=== PATIENT | male | born 1960 | race Caucasian/White ===

== ENCOUNTER 2016-08-14 10:30 | Inpatient (IN) | payer OTHER ==
[~2016-08-14] VITALS: Ht 170.2 cm; Wt 79.8 kg
[~2016-08-14 10:30] MED LIST: FOLI1 PO; PROT40TA PO; THIA100T PO; Z.0.NO CURRENT MEDS
[2016-08-14 10:34] VITALS: BP 163/74; PULSE 61; RESP 16; TEMP 98.4; O2SAT 98
--- NOTE | 2016-08-14 10:43 | PD ---
Physical Exam Time Seen by Provider: 10:41 Narrative 55yo M sent by [facility] for evaluation of black stool since yesterday. Denies abd pain. Reports feeling dizzy and tired. Reports nausea w/o vomiting. Denies fever. Patient seen in triage. VS reviewed. Awaiting bed placement. Data Data Last Documented VS Vital Signs Date Time Temp Pulse Resp B/P Pulse Ox O2 Delivery O2 Flow Rate FiO2 08/14/16 10:34 98.4 61 16 163/74 98 Room Air [facility] Supervised Visit with VAL: Yary Diaz Aug 14, 2016 10:43
[2016-08-14 11:29] LABS: AUTOMATED NEUTROPHIL # 2.7 TH/MM3 (1.8-7.7); BASOPHIL % 0.2 % (0.0-2.0); EOSINOPHIL # 0.1 TH/MM3 (0-0.4); EOSINOPHIL % 2.2 % (0.0-4.0); HEMATOCRIT 37.5 % (39.0-51.0); HEMO FLAGS DIFF FINAL; LYMPH % 23.6 % (9.0-44.0); MEAN CORPUSCULAR HEMOGLOBIN 28.7 PG (27.0-34.0); MEAN CORPUSCULAR HGB CONC 34.2 % (32.0-36.0); MONO % 6.9 % (0.0-8.0); NEUT % 67.1 % (16.0-70.0); PLATELET COUNT 142 TH/MM3 (150-450); RED BLOOD COUNT 4.47 MIL/MM3 (4.50-5.90); RED CELL DISTRIBUTION WIDTH 14.7 % (11.6-17.2); WHITE BLOOD COUNT 4.1 TH/MM3 (4.0-11.0)
[2016-08-14 11:48] LABS: PROTHROMBIN TIME - PATIENT 11.5 SEC (9.8-11.6)
[2016-08-14 12:01] LABS: BLOOD, URINE NEG (NEG); COMMENT (UR) CULT NOT INDICATED; CULTURE IF INDICATED CULT NOT INDICATED; GLUCOSE,URINE NEG (NEG); KETONE, URINE TRACE mg/dL (NEG); MUCUS URINE FEW /lpf (OCC); NITRITE,URINE NEG (NEG); URINE COLOR YELLOW (YELLW/STRAW)
--- NOTE | 2016-08-14 12:39 | PD ---
HPI Chief Complaint: GI Complaint Time Seen by Provider: 12:32 Travel History International Travel<30 days: No Contact w/Intl Traveler<30days: No Traveled to known affect area: No History of Present Illness HPI 55-year-old male came to the emergency room sent by his primary care with history of dark tarry stools since this morning. He had a rectal done at his care's office and the concern was for GI bleed and patient was sent to the emergency room. Patient does not have any history of lightheadedness or dizziness. No history of syncopal episode. No history of abdominal pain. Patient has history of cirrhosis secondary to alcoholism in the past and had variceal banding done 4 years ago. Patient does not speak much Slovenian and information was obtained from medical records. No history of vomiting or nausea. No signs otherwise stable. Blood test was done prior to me going to see the patient and hemoglobin was stable. Patient is stable hemodynamically as well. Patient denies drinking alcohol currently. PFSH Past Medical History Narrative Medical List of his past medical, surgical, social and family history was reviewed from the nursing note. Arthritis: Yes Asthma: No Autoimmune Disease: No Heart Rhythm Problems: No Cancer: No Cardiovascular Problems: No High Cholesterol: No Chemotherapy: No Chest Pain: No Congestive Heart Failure: No COPD: No Diabetes: No Diminished Hearing: No Endocrine: No GERD: No Genitourinary: No Hiatal Hernia: No Heparin Induced Thrombocytopen: No Hypertension: Yes Immune Disorder: No Implanted Vascular Access Dvce: No Kidney Stones: No Musculoskeletal: Yes Neurologic: No Psychiatric: No Reproductive: No Respiratory: No Radiation Therapy: No Renal Failure: No Sickle Cell Disease: No Sleep Apnea: No Thyroid Disease: No Ulcer: No Past Surgical History Abdominal Surgery: No AICD: No Arteriovenous Shunt: No Cardiac Surgery: No Ear Surgery: No Endocrine Surgery: No Eye Surgery: No Genitourinary Surgery: No Gynecologic Surgery: No Insulin Pump: No Joint Replacement: No Neurologic Surgery: No Oral Surgery: No Pacemaker: No Thoracic Surgery: No Other Surgery: Yes (BACK SURGERY) Social History Alcohol Use: Yes (SOCIAL) Tobacco Use: No Substance Use: No Allergies-Medications (Allergen,Severity, Reaction): Coded Allergies: No Known Allergies (Unverified , 10/24/12) Comments No known drug allergies. Reported Meds & Prescriptions Reported Meds & Active Scripts Active Narrative Medication List of his home medications reviewed from the nursing note. Review of Systems Except as stated in HPI: all other systems reviewed are Neg Physical Exam Narrative GENERAL: Awake, alert, anxious, no obvious distress SKIN: Focused skin assessment warm/dry. HEAD: Atraumatic. Normocephalic. EYES: Pupils equal and round. No scleral icterus. No injection or drainage. ENT: No nasal bleeding or discharge. Mucous membranes pink and moist. NECK: Trachea midline. No JVD. CARDIOVASCULAR: Regular rate and rhythm. No murmur appreciated. RESPIRATORY: No accessory muscle use. Clear to auscultation. Breath sounds equal bilaterally. GASTROINTESTINAL: Abdomen soft, non-tender, nondistended. Hepatic and splenic margins not palpable. MUSCULOSKELETAL: No obvious deformities. No clubbing. No cyanosis. No edema. NEUROLOGICAL: Awake and alert. No obvious cranial nerve deficits. Motor grossly within normal limits. Normal speech. PSYCHIATRIC: Appropriate mood and affect; insight and judgment normal. Data Data Last Documented VS Vital Signs Date Time Temp Pulse Resp B/P Pulse Ox O2 Delivery O2 Flow Rate FiO2 08/14/16 12:17 18 08/14/16 10:34 98.4 61 163/74 98 Room Air Orders Complete Blood Count With Diff (08/14/16 11:02) Comprehensive Metabolic Panel (08/14/16 11:02) Urinalysis - C+S If Indicated (08/14/16 11:02) Lipase (08/14/16 11:02) Prothrombin Time / Inr (Pt) (08/14/16 11:02) Sodium Chlor 0.9% 1000 Ml Inj (Ns 1000 M (08/14/16 13:30) Type And Screen (08/14/16 13:26) Admit Order (Ed Use Only) (08/14/16 13:34) Labs Laboratory Tests Test 08/14/16 08/14/16 11:15 13:30 White Blood Count 4.1 TH/MM3 Red Blood Count 4.47 MIL/MM3 Hemoglobin 12.8 GM/DL Hematocrit 37.5 % Mean Corpuscular Volume 84.0 FL Mean Corpuscular Hemoglobin 28.7 PG Mean Corpuscular Hemoglobin 34.2 % Concent Red Cell Distribution Width 14.7 % Platelet Count 142 TH/MM3 Mean Platelet Volume 7.8 FL Neutrophils (%) (Auto) 67.1 % Lymphocytes (%) (Auto) 23.6 % Monocytes (%) (Auto) 6.9 % Eosinophils (%) (Auto) 2.2 % Basophils (%) (Auto) 0.2 % Neutrophils # (Auto) 2.7 TH/MM3 Lymphocytes # (Auto) 1.0 TH/MM3 Monocytes # (Auto) 0.3 TH/MM3 Eosinophils # (Auto) 0.1 TH/MM3 Basophils # (Auto) 0.0 TH/MM3 CBC Comment DIFF FINAL Differential Comment Prothrombin Time 11.5 SEC Prothromb Time International 1.0 RATIO Ratio Urine Color YELLOW Urine Turbidity CLEAR Urine pH 6.0 Urine Specific [place] 1.020 Urine Protein NEG mg/dL Urine Glucose (UA) NEG mg/dL Urine Ketones TRACE mg/dL Urine Occult Blood NEG Urine Nitrite NEG Urine Bilirubin NEG Urine Urobilinogen LESS THAN 2.0 MG/DL Urine Leukocyte Esterase NEG Urine RBC LESS THAN 1 /hpf Urine WBC LESS THAN 1 /hpf Urine Mucus FEW /lpf Microscopic Urinalysis Comment CULT NOT INDICATED Sodium Level 141 MEQ/L Potassium Level 3.7 MEQ/L Chloride Level 105 MEQ/L Carbon Dioxide Level 26.1 MEQ/L Anion Gap 10 MEQ/L Blood Urea Nitrogen 14 MG/DL Creatinine 0.61 MG/DL Estimat Glomerular Filtration 138 ML/MIN Rate Random Glucose 103 MG/DL Calcium Level 9.1 MG/DL Total Bilirubin 0.9 MG/DL Aspartate Amino Transf 17 U/L (AST/SGOT) Alanine Aminotransferase 29 U/L (ALT/SGPT) Alkaline Phosphatase 69 U/L Total Protein 7.8 GM/DL Albumin 3.8 GM/DL Lipase 161 U/L Blood Type A POSITIVE Antibody Screen NEGATIVE MDM Medical Decision Making Medical Screen Exam Complete: Yes Emergency Medical Condition: Yes Medical Record Reviewed: Yes Differential Diagnosis Upper GI bleed, lower GI bleed Narrative Course 1:48 PM based on our Hemoccult result I spoke with the hospitalist. He has accepted the case. Meanwhile patient's primary care doctor, Dr. Bates called as well to let me know about his concern for GI bleed. He preferred that the patient was admitted and got a GI workup. This has been conveyed to the patient and his own language and he understands. Protonix bolus and drip was started. Critical Care Narrative Aggregate critical care time was 30 minutes. Time to perform other separately billable procedures was not included in the critical care time. My time did not include minutes spent treating any other patients simultaneously or on activities that did not directly contribute to the patient's treatment. The services I provided to this patient were to treat and/or prevent clinically significant deterioration that could result in: GI bleed, Protonix bolus and drip I provided critical care services requiring my management, as noted below: Chart data review, documentation time, medication orders and management, vital sign assessments/reviewing monitor data, ordering and reviewing lab tests, ordering and interpreting/reviewing x-rays and diagnostic studies, care of the patient and discussion of the patient with the admitting physicians. Procedures EKG Prior to Arrival: No HemaPrompt Point of Care Internal Pos. & Neg. Controls: Passed Fecal Specimen Occult Blood: Positive Physician Communication Physician Communication Dr. Matias Diagnosis Primary Impression: GI bleed Qualified Code: K92.2 - Gastrointestinal hemorrhage, unspecified gastrointestinal hemorrhage type Admitting Information Admitting Physician Requests: Admit Scripts Propranolol 10 Mg Tab10 Mg PO Q12HR #62 TAB hold for dizziness or low blood pressure Prov:Samantha Pryor 08/15/16 Pantoprazole 40 Mg Tab40 Mg PO DAILY #31 TAB Prov:Samantha Pryor 08/15/16 Pattie Bailey MD Aug 14, 2016 12:38
[2016-08-14 12:56] LABS: ANION GAP 10 MEQ/L (5-15); AST (GOT) 17 U/L (15-37); BICARBONATE 26.1 MEQ/L (21.0-32.0); BLOOD UREA NITROGEN 14 MG/DL (7-18); CHLORIDE 105 MEQ/L (98-107); GLOMERULAR FILTRATION RATE 138 ML/MIN (>89); POTASSIUM 3.7 MEQ/L (3.5-5.1); SODIUM (NA) 141 MEQ/L (136-145)
[2016-08-14 12:57] LABS: ALT (GPT) 29 U/L (12-78)
[2016-08-14 12:59] LABS: ALKALINE PHOSPHATASE 69 U/L (45-117); TOTAL BILIRUBIN ADULT 0.9 MG/DL (0.2-1.0)
[2016-08-14] MEDS ORDERED: SODIUM CHLOR 0.9% 1000 ML INJ 1,000 ML IV ONE (13:30)
[2016-08-14 13:49] VITALS: BP 166/87; PULSE 70; RESP 19; O2SAT 97
[2016-08-14] MEDS ORDERED: ACETAMINOPHEN 325 MG TAB PO PRN (14:00)
[2016-08-14] MEDS ORDERED: ONDANSETRON HCL 4 MG/2 ML VIAL IV PRN ×2 (14:00)
[2016-08-14] MEDS ORDERED: SODIUM CHLORIDE 0.9% FLUSH 10 ML FLUSH IV FLUSH PRN (14:00)
[2016-08-14] MEDS: PANTOPRAZOLE INJ 80 MG in SODIUM CHLORIDE 0.9% INJ 100 ML IV SCH ×2 (14:05→22:34)
[2016-08-14] MEDS ORDERED: OCTREOTIDE INJ 50 MCG/ML AMP IVP ONE (14:30)
--- NOTE | 2016-08-14 14:39 | HHI.HP ---
HPI Service [facility] Hospitalists Primary Care Physician Vernon Bates MD Admission Diagnosis upper GI bleed Chief Complaint: Melena Travel History International Travel<30 Days: No Contact w/Intl Traveler <30 Da: No Traveled to Known Affected Are: No History of Present Illness Mr. Tiwari is a pleasant 55 y/o male with liver cirrhosis and hx of esophageal varices and GIB in 2012. He presented to the ED at [facility] on 08/14 with reported melanotic stool and fatigue. The pt speaks very little [place]ao [place] and the history was translated with the help of a medical student at bedside as well as from the story provided by the ED physician, Dr. Bailey. Pt reports that he started having loose black stool yesterday. He denies any abdominal pain. patient denies any alcohol use and denies any NSAID use but he reportedly takes a "pain pill" once daily. In review of outpt records he was prescribed Naproxen in November 2015 and March 2016 but he is unable to tell us if that is what he takes for pain at home. Pt denies any chest pain, SOB or palpitations. LINDA in the ED noted melanotic stool, guaiac positive. Pt has been started on a Protonix gtt. Review of Systems Constitutional: DENIES: Fever, Chills Eyes: DENIES: Vision loss Ears, nose, mouth, throat: DENIES: Hearing loss Respiratory: DENIES: Shortness of breath Cardiovascular: DENIES: Chest pain Gastrointestinal: COMPLAINS OF: Black stools, DENIES: Abdominal pain, BRB per rectum, Nausea, Vomiting Genitourinary: DENIES: Dysuria, Nocturia Musculoskeletal: DENIES: Back pain Integumentary: DENIES: Rash Neurologic: DENIES: Headache Psychiatric: DENIES: Confusion Past Family Social History Past Medical History Liver cirrhosis reportedly secondary to alcohol use, he denies any alcohol use currently Hx of esophageal varices s/p banding in 2012 Past Surgical History Rib surgery, specific unclear EGD (10/25/12) -->large clot in the fundus, grade III esophageal varices, in three columns s/p banding x 5 Reported Medications No Current Meds (Miscellaneous Medication) Misc Allergies: Coded Allergies: No Known Allergies (Unverified , 10/24/12) Family History Noncontributory Social History Denies any current alcohol use, but reportedly used to drink regularly, unclear how long it has been without alcohol Denies any tobacco or illicit drug use Pt works at a local restaurant Physical Exam Vital Signs Vital Signs Date Time Temp Pulse Resp B/P Pulse Ox O2 Delivery O2 Flow Rate FiO2 08/14/16 13:49 70 19 166/87 97 Room Air 08/14/16 12:17 18 08/14/16 10:34 98.4 61 16 163/74 98 Room Air Physical Exam GENERAL: This is a well-nourished, well-developed patient, in no apparent distress. HEENT: Atraumatic. Normocephalic. No temporal or scalp tenderness. No scleral icterus. Airway patent. NECK: Trachea midline, supple, nontender. CARDIO: Regular. RESP: CTA bilaterally. No wheezes, rales, or rhonchi. ABD: +BS, soft, non-tender, nondistended. EXT: Extremities without clubbing, cyanosis, or edema. NEURO: Awake and alert. Motor and sensory grossly within normal limits. Normal speech. Laboratory Laboratory Tests Test 08/14/16 08/14/16 11:15 13:30 White Blood Count 4.1 Red Blood Count 4.47 Hemoglobin 12.8 Hematocrit 37.5 Mean Corpuscular Volume 84.0 Mean Corpuscular Hemoglobin 28.7 Mean Corpuscular Hemoglobin 34.2 Concent Red Cell Distribution Width 14.7 Platelet Count 142 Mean Platelet Volume 7.8 Neutrophils (%) (Auto) 67.1 Lymphocytes (%) (Auto) 23.6 Monocytes (%) (Auto) 6.9 Eosinophils (%) (Auto) 2.2 Basophils (%) (Auto) 0.2 Neutrophils # (Auto) 2.7 Lymphocytes # (Auto) 1.0 Monocytes # (Auto) 0.3 Eosinophils # (Auto) 0.1 Basophils # (Auto) 0.0 CBC Comment DIFF FINAL Differential Comment Prothrombin Time 11.5 Prothromb Time International 1.0 Ratio Urine Color YELLOW Urine Turbidity CLEAR Urine pH 6.0 Urine Specific [place] 1.020 Urine Protein NEG Urine Glucose (UA) NEG Urine Ketones TRACE Urine Occult Blood NEG Urine Nitrite NEG Urine Bilirubin NEG Urine Urobilinogen LESS THAN 2.0 Urine Leukocyte Esterase NEG Urine RBC LESS THAN 1 Urine WBC LESS THAN 1 Urine Mucus FEW Microscopic Urinalysis Comment CULT NOT INDICATED Sodium Level 141 Potassium Level 3.7 Chloride Level 105 Carbon Dioxide Level 26.1 Anion Gap 10 Blood Urea Nitrogen 14 Creatinine 0.61 Estimat Glomerular Filtration 138 Rate Random Glucose 103 Calcium Level 9.1 Total Bilirubin 0.9 Aspartate Amino Transf 17 (AST/SGOT) Alanine Aminotransferase 29 (ALT/SGPT) Alkaline Phosphatase 69 Total Protein 7.8 Albumin 3.8 Lipase 161 Blood Type A POSITIVE Result Diagram: 08/14/16 11108/14/16 111 Septic Shock Reassessment Heart: Regular rate and rhythm Lungs: Clear Skin: Warm Assessment and Plan Problem List: (1) GI bleed Status: Acute Plan: - Pt is a 55 y/o male with hx of liver cirrhosis presumed secondary to alcohol and hx of esophageal varices. - He presented to the ED with melanotic stools that began yesterday. - Pts last EGD (10/25/12) -->large clot in the fundus, grade III esophageal varices, in three columns s/p banding x 5 - It is also unclear if the pt has been using NSAIDs or not. He has Naproxen prescribed in [facility] records but its not clear if he is taking this or not. - Pt has been started on Protonix gtt - Start Octreotide gtt - Cipro IV - Consult GI - Monitor H/H - Zofran PRN - Clear liquid diet, then NPO after MN - Supportive care - DVT prophylaxis with SCDs (2) Liver cirrhosis Status: Chronic Plan: - Pt has previously reported liver cirrhosis and esophageal varices in 2012. - He appears to have chronic thrombocytopenia - He cirrhosis was previously attributed to alcohol, pt denies any alcohol use but its not clear how long he has been alcohol free. - Labs are stable. (3) Hx of esophageal varices Status: Chronic Plan: - See above Physician Certification 2 Midnight Certification Type: Admission for Inpatient Services Order for Inpatient Services The services are ordered in accordance with Medicare regulations or non- Medicare payer requirements, as applicable. In the case of services not specified as inpatient-only, they are appropriately provided as inpatient services in accordance with the 2-midnight benchmark. Estimated LOS (days): 3 3 days is the estimated time the patient will need to remain in the hospital, assuming treatment plan goals are met and no additional complications. Post-Hospital Plan: Not yet determined Problem Qualifiers (1) GI bleed: Qualified Code: K92.2 - Gastrointestinal hemorrhage, unspecified gastrointestinal hemorrhage type Samantha Pryor Aug 14, 2016 14:38
[2016-08-14] MEDS ORDERED: PANTOPRAZOLE INJ 80 MG in SODIUM CHLORIDE 0.9% INJ 35 ML IV ONE (14:45)
[2016-08-14] MEDS ORDERED: OCTREOTIDE INJ 500 MCG in SODIUM CHLORID 0.9% 500 ML INJ 499.5 ML IV SCH (15:00)
[2016-08-14 15:24] VITALS: BP 155/76; PULSE 50; RESP 18; O2SAT 97
--- NOTE | 2016-08-14 15:38 | PD.CONS ---
HPI History of Present Illness This is a 55 year old albanian speaking male with hx GIB in 2013, hx liver cirrhosis and esophageal varices, who presented for black stool. Onset black stool was yesterday, he went to his Dr this morning who told him to come to ER. He has had this once before along with n/v back in 2012 at which time he had EGD --> large clot in fundus, grade 3 varices, s/p bands x 5. Denies abdominal pain, n/v, diarrhea. Denies NSAID use, says he only takes vitamins. He has not had ETOH since 2013, prior to that he drank 'alot.' (Kylah Wiseman ) PFSH Past Medical History denies Past Surgical History back surgery 2001 (Kylah Wiseman) Coded Allergies: No Known Allergies (Unverified , 10/24/12) Family History DM Social History No ETOH currently but heavy ETOH prior to 2012 no tobacco no drugs, never (Kylah Wiseman) Review of Systems Eyes: DENIES: Blurred vision Ears, nose, mouth, throat: DENIES: Hearing loss Respiratory: COMPLAINS OF: Cough Cardiovascular: DENIES: Chest pain Gastrointestinal: COMPLAINS OF: Black stools, DENIES: Abdominal pain, Bloody stools, Constipation, Diarrhea, Nausea, Vomiting, Hematemesis Genitourinary: DENIES: Hematuria Musculoskeletal: DENIES: Muscle aches Integumentary: DENIES: Rash Neurologic: DENIES: Abnormal gait Psychiatric: DENIES: Confusion (Kylah Wiseman) GI Exam Vitals I&O Vital Signs Date Time Temp Pulse Resp B/P Pulse Ox O2 Delivery O2 Flow Rate FiO2 08/14/16 15:24 50 18 155/76 97 Room Air 08/14/16 13:49 70 19 166/87 97 Room Air 08/14/16 12:17 18 08/14/16 10:34 98.4 61 16 163/74 98 Room Air Laboratory Test 08/14/16 08/14/16 11:15 13:30 White Blood Count 4.1 TH/MM3 Red Blood Count 4.47 MIL/MM3 Hemoglobin 12.8 GM/DL Hematocrit 37.5 % Mean Corpuscular Volume 84.0 FL Mean Corpuscular Hemoglobin 28.7 PG Mean Corpuscular Hemoglobin 34.2 % Concent Red Cell Distribution Width 14.7 % Platelet Count 142 TH/MM3 Mean Platelet Volume 7.8 FL Neutrophils (%) (Auto) 67.1 % Lymphocytes (%) (Auto) 23.6 % Monocytes (%) (Auto) 6.9 % Eosinophils (%) (Auto) 2.2 % Basophils (%) (Auto) 0.2 % Neutrophils # (Auto) 2.7 TH/MM3 Lymphocytes # (Auto) 1.0 TH/MM3 Monocytes # (Auto) 0.3 TH/MM3 Eosinophils # (Auto) 0.1 TH/MM3 Basophils # (Auto) 0.0 TH/MM3 CBC Comment DIFF FINAL Differential Comment Prothrombin Time 11.5 SEC Prothromb Time International 1.0 RATIO Ratio Urine Color YELLOW Urine Turbidity CLEAR Urine pH 6.0 Urine Specific [place] 1.020 Urine Protein NEG mg/dL Urine Glucose (UA) NEG mg/dL Urine Ketones TRACE mg/dL Urine Occult Blood NEG Urine Nitrite NEG Urine Bilirubin NEG Urine Urobilinogen LESS THAN 2.0 MG/DL Urine Leukocyte Esterase NEG Urine RBC LESS THAN 1 /hpf Urine WBC LESS THAN 1 /hpf Urine Mucus FEW /lpf Microscopic Urinalysis Comment CULT NOT INDICATED Sodium Level 141 MEQ/L Potassium Level 3.7 MEQ/L Chloride Level 105 MEQ/L Carbon Dioxide Level 26.1 MEQ/L Anion Gap 10 MEQ/L Blood Urea Nitrogen 14 MG/DL Creatinine 0.61 MG/DL Estimat Glomerular Filtration 138 ML/MIN Rate Random Glucose 103 MG/DL Calcium Level 9.1 MG/DL Total Bilirubin 0.9 MG/DL Aspartate Amino Transf 17 U/L (AST/SGOT) Alanine Aminotransferase 29 U/L (ALT/SGPT) Alkaline Phosphatase 69 U/L Total Protein 7.8 GM/DL Albumin 3.8 GM/DL Lipase 161 U/L Blood Type A POSITIVE Antibody Screen NEGATIVE Physical Examination HEENT: EOMI; normocephalic; atraumatic; no jaundice. CHEST: CTA CARDIAC: RRR ABDOMEN: Soft, nondistended, nontender; no hepatosplenomegaly; bowel sounds are present in all four quadrants. EXTREMITIES: No clubbing, cyanosis, or edema. SKIN: Normal; no rash; no jaundice. 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 (Kylah Wiseman) Assessment and Plan Plan ASSESSMENT - anemia - Hgb 12.8 on admission. - melena - onset yesterday. Hx previous GIB 2012 had EGD which found a large clot, grade 3 varices, and bands applied x 5. Prior to 2012 was heavy drinker. - ?cirrhosis - hx heavy ETOH, none since 2012. 2012 liver US --> liver echogenic could be r/t mild fatty infiltration PLAN - EGD in am - obtain consents - clears today - NPO after midnight - monitor HH - further recommendations to follow This pt seen by myself and DR Mancuso and this note is written on his behalf ( Kylah Wiseman) Physician Comments Seen and examined with GLORIA, no active bleeding reported. EGD planned for tomorrow morning. Clear liquid diet ok. Iv protonix/ octreotide . notify gi of any bleeding. Thank you (Evita Mancuso MD) Kylah Wiseman Aug 14, 2016 15:38 Evita Mancuso MD Aug 14, 2016 18:49
[2016-08-14] MEDS: CIPROFLOXACIN 400 MG PREMIX 200 ML IV SCH (17:30)
[2016-08-14 20:00] VITALS: BP 128/74; PULSE 50; RESP 15; TEMP 96.9; O2SAT 99
[2016-08-14] MEDS: SODIUM CHLORIDE 0.9% FLUSH 10 ML FLUSH IV FLUSH SCH (21:00)
[2016-08-15] VITALS: BP 104/55; PULSE 53; RESP 15; TEMP 97.2; O2SAT 98
[2016-08-15 04:00] VITALS: BP 132/73; PULSE 56; RESP 15; TEMP 97.9; O2SAT 95
[2016-08-15] MEDS: CIPROFLOXACIN 400 MG PREMIX 200 ML IV SCH (04:42)
[2016-08-15 08:00] VITALS: BP 116/65; PULSE 52; RESP 16; TEMP 97.3; O2SAT 95
[2016-08-15] MEDS: PNEUMOCOCCAL POLYVALENT INJ 25 MCG/0.5 ML SYR IM ONE ×2 (08:24→08:31)
[2016-08-15] MEDS: SODIUM CHLORIDE 0.9% FLUSH 10 ML FLUSH IV FLUSH SCH (08:25)
[2016-08-15 08:44] LABS: AUTOMATED NEUTROPHIL # 2.2 TH/MM3 (1.8-7.7); BASOPHIL % 0.2 % (0.0-2.0); EOSINOPHIL # 0.1 TH/MM3 (0-0.4); EOSINOPHIL % 2.7 % (0.0-4.0); HEMATOCRIT 35.5 % (39.0-51.0); HEMO FLAGS DIFF FINAL; LYMPH % 22.4 % (9.0-44.0); LYMPHOCYTE # 0.7 TH/MM3 (1.0-4.8); MEAN CELL VOLUME 84.3 FL (80.0-100.0); MEAN CORPUSCULAR HEMOGLOBIN 29.4 PG (27.0-34.0); MEAN CORPUSCULAR HGB CONC 34.8 % (32.0-36.0); MONO % 6.4 % (0.0-8.0); NEUT % 68.3 % (16.0-70.0); PLATELET COUNT 119 TH/MM3 (150-450); RED BLOOD COUNT 4.21 MIL/MM3 (4.50-5.90); RED CELL DISTRIBUTION WIDTH 14.8 % (11.6-17.2); WHITE BLOOD COUNT 3.2 TH/MM3 (4.0-11.0)
[2016-08-15 09:13] LABS: BICARBONATE 26.7 MEQ/L (21.0-32.0); MAGNESIUM 2.1 MG/DL (1.5-2.5); POTASSIUM 3.6 MEQ/L (3.5-5.1)
--- NOTE | 2016-08-15 09:14 | HHI.PR ---
Subjective Remarks limited greenlandic. pt understands the need for egd today. Objective Vitals heart reg lung cta abd s/nt ext no edema Vital Signs Date Time Temp Pulse Resp B/P Pulse Ox O2 Delivery O2 Flow Rate FiO2 08/15/16 08:00 97.3 52 16 116/65 95 08/15/16 04:00 97.9 56 15 132/73 95 08/15/16 00:00 97.2 53 15 104/55 98 08/14/16 20:00 96.9 50 15 128/74 99 08/14/16 15:24 50 18 155/76 97 Room Air 08/14/16 13:49 70 19 166/87 97 Room Air 08/14/16 12:17 18 08/14/16 10:34 98.4 61 16 163/74 98 Room Air 08/14/16 08/14/16 08/15/16 15:00 23:00 07:00 Output Total 150 ml Balance -150 ml Output Urine Total 150 ml Result Diagram: 08/15/16 0822 08/14/16 1115 A/P Problem List: (1) GI bleed Status: Acute Plan: - Pt is a 55 y/o male with hx of liver cirrhosis presumed secondary to alcohol and hx of esophageal varices. - He presented to the ED with melanotic stools that began x 1 day - Pts last EGD (10/25/12) -->large clot in the fundus, grade III esophageal varices, in three columns s/p banding x 5 - It is also unclear if the pt has been using NSAIDs or not. He has Naproxen prescribed in [facility] records but its not clear if he is taking this or not. - Pt has been started on Protonix gtt - Started Octreotide gtt - Cipro IV -GI to do egd today. (2) Liver cirrhosis Status: Chronic Plan: - Pt has previously reported liver cirrhosis and esophageal varices in 2012. - He appears to have chronic thrombocytopenia - He cirrhosis was previously attributed to alcohol, pt denies any alcohol use but its not clear how long he has been alcohol free. - Labs are stable. (3) Hx of esophageal varices Status: Chronic Plan: - See above Problem Qualifiers (1) GI bleed: Qualified Code: K92.2 - Gastrointestinal hemorrhage, unspecified gastrointestinal hemorrhage type Gurdeep Saldivar MD Aug 15, 2016 09:14
--- NOTE | 2016-08-15 10:28 | GIPROC ---
[facility] [address] [facility]. [facility], [address] EGD PROCEDURE REPORT EXAM DATE: 08/15/2016 PATIENT NAME: Darian De Dios MR #: [id number] BIRTHDATE: 1960 ATTENDING: Evita Mancuso MD ORDER #: [id number] DIGITAL COMPUTER OPERATOR: Carmen Bejarano and Madhav Mcpherson STATUS: inpatient INDICATIONS: The patient is a 55 yr old male here for an EGD due to hematemesis PROCEDURE PERFORMED: EGD w/ band ligation of varices MEDICATIONS: None and Per Anesthesia. TOPICAL ANESTHETIC: CONSENT: The patient understands the risks and benefits of the procedure and understands that these risks include, but are not limited to: sedation, allergic reaction, infection, perforation and/or bleeding. Alternative means of evaluation and treatment include, among others: physical exam, x-rays, and/or surgical intervention. The patient elects to proceed with this endoscopic procedure. medical equipment was checked for proper function. Hand hygiene and appropriate measures for infection prevention was taken. After the risks, benefits and alternatives of the procedure were thoroughly explained, Informed consent was verified, confirmed and timeout was successfully executed by the treatment team. The patient was anesthetized with topical anesthesia and the Pentax [id number] and [id number] endoscope was introduced through the mouth and advanced to the second portion of the duodenum. Retroflexed views revealed no abnormalities The gastroscope was then slowly withdrawn and removed. ESOPHAGUS: There were 2 columns of medium sized varices in the distal esophagus. The varices were not bleeding. There was evidence of prior scarring and a red ayesha sign. DUODENUM: The duodenal mucosa appeared normal. STOMACH: Moderate portal hypertensive gastropathy was found in the gastric fundus. ADVERSE EVENTS: There were no complications. IMPRESSIONS: 1. Normal duodenal mucosa 2. Portal hypertensive gastropathy was found in the gastric fundus 3. Retroflexed views revealed no abnormalities RECOMMENDATIONS: 1. Anti-reflux regimen 2. Continue PPI 3. Avoid NSAIDS 4. Inderal 10mg 1 po bid PATIENT CONDITION: stable DISPOSITION: Inpatient REPEAT EXAM: Return 3 months EGD with sclerotherapy Evita Mancuso MD eSigned: Evita Mancuso MD 08/15/2016 10:27 AM cc: PATIENT NAME: Darian De Dios MR#: [id number]
[2016-08-15] MEDS ORDERED: PROPRANOLOL HCL 10 MG TAB PO SCH (12:00)
[2016-08-15] MEDS: PANTOPRAZOLE INJ 80 MG in SODIUM CHLORIDE 0.9% INJ 100 ML IV SCH (12:04)
[2016-08-15 12:11] VITALS: BP 132/78; PULSE 60
[2016-08-15 14:00] VITALS: BP 164/82; PULSE 50; RESP 16; TEMP 97.7; O2SAT 99
[2016-08-15] MEDS ORDERED: PROPOFOL 200 MG/20 ML AMP IV ONE (14:47)
[2016-08-15] MEDS ORDERED: PROP10TA6 PO (14:55)
[2016-08-15] MEDS ORDERED: PANT40TA3 PO (14:55)
--- NOTE | 2016-08-15 15:01 | HHI.DCPOC ---
Discharge Care Plan Diagnosis: (1) GI bleed (2) Liver cirrhosis (3) Hx of esophageal varices Goals to Promote Your Health - Patient is to followup with Dr. Mancuso in 2 weeks, call for an appt. - He has recommended to have a repeat EGD in 2 months - Patient will need to followup with his PCP, Dr. Bates, in 1 week. - NEW MEDICATIONS INCLUDE: - Protonix 40mg once daily - Propranolol 10mg twice daily (Hold for any dizziness or lightheadedness) Directions to Meet Your Goals Take your medications as prescribed Follow your dietary instruction Follow activity as directed Keep your appointments as scheduled Take your immunizations and boosters as scheduled If your symptoms worsen call your PCP, if no PCP go to Urgent Care Center or Emergency Room Smoking is Dangerous to Your Health. Avoid second hand smoke Call the 24-hour hour crisis hotline for domestic abuse at Samantha Pryor Aug 15, 2016 15:01
--- NOTE | 2016-08-15 22:30 | EKG ---
Date Performed: 08/15/2016 Time Performed: 01:09:32 PTAGE: 55 years EKG: Sinus rhythm Prolonged QT interval Borderline ECG PREVIOUS TRACING : 10/30/2012 08.36 DOCTOR: Cielo Farris Interpretating Date/Time 08/15/2016 22:29:22
[2016-08-16] MEDS ORDERED: PANTOPRAZOLE SOD 40 MG DELAYED RELEASE TAB PO SCH (09:00)
== END 2016-08-15 18:44 | disposition home or self-care (01) | DRG 378 ==
LOC: NEPE 10:30 → NEDA 13:36 → HOCB 16:40
PROVIDERS: ADMIT Hospitalist; ATTEND Hospitalist
PROC: 06L34CZ Occlusion of Esophageal Vein with Extraluminal Device, Percutaneous Endoscopic Approach (ICD-10-PCS; principal; 2016-08-15 10:00)
DX: K92.1 Melena (principal); K76.6 Portal hypertension; D69.6 Thrombocytopenia, unspecified; K70.30 Alcoholic cirrhosis of liver without ascites; M19.90 Unspecified osteoarthritis, unspecified site; I10 Essential (primary) hypertension; D64.9 Anemia, unspecified; K31.89 Other diseases of stomach and duodenum; I85.10 Secondary esophageal varices without bleeding; Z23 Encounter for immunization
CPT/HCPCS: 80048; 80053; 81001; 83690; 83735; 85025; 85610; 86850; 86900; 86901; 90732; 93005; C9113; J0744; J2354; J7030; J7040